=== PATIENT | female | born 1950 | race Caucasian/White ===

== ENCOUNTER → 2017-07-21 | Outpatient (CLI) | payer OTHER ==
[~2017-07-21] MED LIST: AUGMENTIN 875-1 EACH PO; CLEOCIN HCL300 MG; DOXYCYCLINE 10100 M1; FLORASTOR250 M1; LORTAB 5 MG/5001 TA1
== END ==
LOC: M.RAD 11:22
DX: Z12.31 Encounter for screening mammogram for malignant neoplasm of breast (principal)

== ENCOUNTER → 2018-06-18 | Outpatient (CLI) | payer OTHER, MEDICARE | LOC: M.RAD 11:09 | DX: J98.01 Acute bronchospasm (principal) ==

== ENCOUNTER → 2018-07-27 | Outpatient (CLI) | payer OTHER, MEDICARE | LOC: M.RAD 12:46 | DX: Z12.31 Encounter for screening mammogram for malignant neoplasm of breast (principal) ==

== ENCOUNTER → 2018-12-25 | Outpatient (CLI) | payer OTHER, MEDICARE | LOC: M.MRI 08-20 16:33 → M.RAD 12:11 | DX: S73.191A Other sprain of right hip, initial encounter (principal); S73.192A Other sprain of left hip, initial encounter; M16.0 Bilateral primary osteoarthritis of hip; M25.452 Effusion, left hip; M25.451 Effusion, right hip; M54.5 Low back pain; G89.29 Other chronic pain; X58.XXXA Exposure to other specified factors, initial encounter; Y93.89 Activity, other specified; Y92.89 Other specified places as the place of occurrence of the external cause; Y99.8 Other external cause status ==

== ENCOUNTER → 2019-09-21 | Outpatient (CLI) | payer OTHER | LOC: M.RAD 09:40 | PROVIDERS: ATTEND Nurse Practitioner Women's Health | DX: Z12.31 Encounter for screening mammogram for malignant neoplasm of breast (principal); N64.89 Other specified disorders of breast ==

== ENCOUNTER → 2020-09-08 | Outpatient (CLI) | payer OTHER | LOC: M.RAD 11:19 | PROVIDERS: ATTEND Nurse Practitioner Women's Health | DX: Z12.31 Encounter for screening mammogram for malignant neoplasm of breast (principal) ==